=== PATIENT | female | born 1950 | race Caucasian/White ===

== ENCOUNTER → 2019-04-25 | Day surgery (SDC) | payer MEDICARE ==
[~2019-04-25] MED LIST: BUPROPION HCL200 M1 PO; CLONAZEPAM 1 MG1 M1 PO; DIPHENHIST50 MG PO; ENOXAPARIN30 MG/0.1 SUBQ; HYSINGLA ER30 MG PO; IRON325 PO; METOPROLOL SUC100 MG PO; MIRALAX17 GM PO; MOBIC7.5 MG PO; NORCO 5-325 TA1 EAC1 PO; ONDANSETRON HCL4 M2 PO; RISPERDAL2 MG PO; SYNTHROID100 MC1 PO
--- NOTE | ~2019-04-25 | OP ---
[address] [address] OPERATIVE REPORT Name: SAY LEON Room: [facility]#: [id number] Admission: 04/25/19 Attend Phys: Aldo Coello MD Discharge: Date of : 50 Report #: [id number] THIS REPORT FOR: //name// CC: Aldo Painter DATE OF SERVICE: 04/25/2019 UROLOGY OPERATIVE NOTE PREOPERATIVE DIAGNOSES: Left kidney stones and recurrent urinary tract infections. POSTOPERATIVE DIAGNOSES: Left kidney stones and recurrent urinary tract infections. PROCEDURE PERFORMED: Cystoscopy with left retrograde pyelogram, ureteroscopy, laser lithotripsy, and stent placement. A 22 modifier will be added due to increased level of difficulty due to a large renal stones and increased level of time. SURGEON: Aldo Coello MD ANESTHESIA: General. ESTIMATED BLOOD LOSS: Minimal. COMPLICATIONS: None. INDICATION FOR PROCEDURE: This is a 68-year-old female who has a history of recurrent urinary tract infections. On abdominal CT, she was found to have multiple large left renal stones. There was concern that these are possibly infectious stones or leading to infections due to the large size. The risks, benefits, and possible complications of ureteroscopy, laser lithotripsy, and stent placement were explained in detail to both the patient and her . She has a chance to ask questions, which were answered to satisfaction. She has elected to proceed. DESCRIPTION OF PROCEDURE: After obtaining informed consent, the patient was taken to the operating room and placed in supine position. After adequate general anesthesia and IV antibiotics, she was prepped and draped in dorsal lithotomy position. A 21-Zimbabwean cystoscope with 30 degree lens was introduced in the bladder. There was a moderate amount of sediment within the base of bladder and some partially calcified mucus. This was irrigated out of the bladder. Bladder mucosa was intact without any tumors, mildly erythematous in the base consistent with chronic irritation. Left [place] [id number] OPERATIVE REPORT Name: SAY LEON PEPITO Room: [facility]#: [id number] Admission: 04/25/19 Attend Phys: Aldo Coello MD Discharge: Date of : 50 Report #: [id number] cannulated with a 5-Zimbabwean open-ended ureteral catheter and a retrograde pyelogram revealed a normal caliber ureter all the way up to the renal pelvis where there were several large stones, estimated 1-1.5 cm each, total stone volume was about 2-2.5 cm. A sensor guidewire was passed in retrograde fashion and a second wire was placed as a safety wire. An 09/19 ureteral access sheath was then gently passed over one of the wires into the proximal ureter under fluoroscopic guidance, it passed quite easily. A flexible ureteroscopy was then carried out through the access sheath into the renal pelvis where several large stones were identified. Using a 200 micron holmium laser fiber, the stone in the renal pelvis was fragmented in multiple tiny fragments. This took 2-3 times at which time due to its large size and multiple trips necessary with a Zero Tip nitinol basket in order to retrieve all fragments. Once this had been done, attention was placed on the large upper pole stone, which was partially imbedded into the infundibulum and was partially staghorn with several portions in the upper pole and mid pole francisco j. Using the laser fiber, this was fragmented in multiple small fragments. After 30-40 minutes of lasering, this debris and fragments had to be retrieved so that the bottom of the base of the stone could be seen and this was repeated several times until all the stone had been cleared. This took over an hour and a half of laser time as well as basket retrieving which is 4-5 times average time of a normal kidney stone. However, at the end of the case, it was felt that all the sizable fragments have been retrieved or fragmented into smaller pieces that they would pass easily. There was moderate erythema and edema where the stone had been lodged, but otherwise no concerning features. The access sheath was removed. The ureter was inspected with removal of the ureteroscope. There was no evidence of any ureteral injury or stones within the ureter. A 6 x 26 cm double-J stent was passed in retrograde fashion over the wire into the renal pelvis. A partial coil was noted overlying the renal pelvises as the patient had a very small renal pelvis, but no evidence of any hydronephrosis. A good coil was directly visualized in the bladder. Uro-Jet was applied per urethra and a B and O suppository was placed per rectum. The patient was extubated and taken to Recovery Room in good condition. Plan is to follow up in 1-2 weeks with a KUB and possible stent removal. By: [id number] 49Aldo Coello MD /toni
[2019-04-25 13:42] LABS: HEMATOCRIT 46.4 % (37.0-47.0); HEMOGLOBIN 15.6 gm/dL (12.0-15.0); MCH 30.5 pg (26.0-34.0); MCHC 33.6 g/dL (28.0-37.0); MCV 90.7 fL (80.0-100.0); MPV 7.6 fl. (7.2-11.1); RBC 5.11 mil/uL (4.20-5.00); RDW-CV 15.2 % (10.5-14.5); WBC 13.1 thou/uL (4.0-11.0)
[2019-04-25 13:49] LABS: POTASSIUM 3.9 mmol/L (3.5-5.1)
[2019-04-25 13:53] LABS: ALBUMIN 3.5 g/dL (3.4-5.0); TOTAL BILIRUBIN 0.2 mg/dL (<0.1-1.0); TOTAL PROTEIN 7.6 g/dL (6.4-8.2)
--- NOTE | 2019-04-25 14:05 | EKG ---
[place] [address] ELECTROCARDIOGRAM REPORT Name: SAY LEON Room: [facility]#: [id number] Admission: 04/25/19 Attend Phys: Aldo Coello MD Discharge: Date of : 50 Report #: [id number] THIS REPORT FOR: //name// [facility] Test Date: 2019-04-25 Test Time: 13:41:45 Pat Name: SAY LEON Department: Room: Gender: F Industrial Sweeper Cleaner: : 1950 Requested By: Aldo Coello Order Number: [id number] Reading MD: Deondre Saldivar Measurements Intervals [place] Rate: 65 P: 117 AL: 189 QRS: -34 QRSD: 92 T: 81 QT: 408 QTc: 425 Interpretive Statements Sinus rhythm Multiform ventricular premature complexes LVH with secondary repolarization abnormality Anterior Q waves, possibly due to LVH No previous ECG available for comparison Electronically Signed On 04-25-2019 14:05:17 CDT by Deondre Saldivar [email or web address] <ELECTRONICALLY SIGNED> By: Deondre Saldivar MD, [facility] 04/25/19 1405 1341 134 Deondre Saldivar MD, FACC /EPI
== END | disposition home or self-care (01) ==
LOC: M.SUR 11:27
PROVIDERS: Urology
DX: N20.0 Calculus of kidney (principal); N39.0 Urinary tract infection, site not specified; Z88.2 Allergy status to sulfonamides; Z79.891 Long term (current) use of opiate analgesic; Z79.899 Other long term (current) drug therapy